=== PATIENT | male | born 1985 | race Caucasian/White ===

== ENCOUNTER 2016-12-09 12:10 | Day surgery (SDC) | payer OTHER ==
[~2016-12-09] VITALS: Ht 167.6 cm; Wt 77.0 kg
[~2016-12-09 12:10] MED LIST: 0.9% Sodium Chloride 1,000 ML IV PRN; OMEP20CA11 PO; Sodium Chloride LOK Flush 10 mL Syringe IV PRN; fentaNYL-PF 50 mCg/mL 2 mL Inj IVPUSH PRN
[2016-12-09 12:40] VITALS: BP 120/75; PULSE 69; RESP 16; O2SAT 95
--- NOTE | 2016-12-09 13:44 | PCM.ENDEGD ---
EGD Date of Service: Dec 09, 2016 Physician Christiano Wong MD Pre Procedure Diagnosis: Abdominal pain and reflux Post Procedure Dx & Findings: Normal upper endoscopy Procedure Esophagogastroduodenoscopy PROCEDURE IN DETAIL: After proper sedation, Olympus video endoscope was inserted into patient's mouth and esophagus was successfully intubated. Scope introduced esophagus. Esophagus showed normal shiny whitish mucosa consistent with squamous cell component. Z line was intact at 43 cm from the incisors. Scope further advanced into the stomach. Stomach showed normal shiny mucosa with normal appearing rugae folds without any ulcer mass erosion. Cardia fundus body antrum pylorus were all visualized. Retroflexion was done. Stomach was easily inflated and deflatable using air. Scope further events to the distal duodenum. Duodenum revealed normal villous structures with normal appearing folds without any mass ulcer erosion. 5 Biopsies are obtained in the duodenum to rule out celiac disease Impression Normal upper GI Recommendation Await biopsy Presedation Assessment Risks and Benefits Informed consent was obtained from the patient after all risks and benefits including but not limited to drug reaction, infection, pain, bleeding, perforation, as well as alternatives were discussed. Patient monitoring Continuous pulse oximetry, cardiac monitoring, blood pressure monitoring, IV access, and oxygen at 2L per nasal cannula. Periprocedural Fentanyl: Fentanyl 175mcg Incrementally Midazolam: Midazolam 8mg Incrementally Diphenhydramine: Diphenhydramine 50 mg IV Complications There were no periprocedural complications identified. Post Procedure Plan Post Procedure Recommendations 1. Restrict activities today. 2. Resume normal activities in the morning. 3. Resume medications. 4. GERD behavioral modification: - Avoid fatty, acidic, spicy, large meals - Do not lie down after meals - Do not eat or drink anything for at least 2 1/2 hours before going to bed at night - Discontinue tobacco and alcohol - Decrease or avoid caffeine - Avoid chocolate and mints - Decrease weight - Avoid aspirin and non steroidal anti-inflammatory agents (NSAID) such as Aleve, Advil, Mobic, Naproxen, Ibuprofen, etc 5. Add proton pump inhibitor. Take 30 minutes before 1st meal of the day. 6. Patient informed of normal post procedure side effects as bloating, drowsiness, blood streaking in the stool 7. If gastric biopsy reveal H.pylori, continue with appropriate treatment 8. If small bowel biopsy reveals celiac, continue with appropriate treatment 9. Please don't hesitate to call me with any questions Christiano Wong MD Dec 09, 2016 13:44
--- NOTE | 2016-12-09 14:07 | PCM.ENDCOL ---
Colonoscopy Date of Service: Dec 09, 2016 Physician Christiano Wong MD Pre Procedure Diagnosis: Abdominal pain and blood in the stools Post Procedure Dx & Findings: Hemorrhoids polyps right sided erosions Procedure Colonoscopy Prep adequate Withdrawal time 14 minutes After unremarkable rectal examination the Olympus video colonoscope was inserted patient's anal canal and was advanced to cecum. Landmarks were identified including the ileocecal valve and appendiceal orifice. Scope was withdrawn systematically. Visualized colonic mucosa showed healthy shiny mucosa with normal healthy-appearing vasculature. In the cecum and in the ascending colon, there were several subtle millimeter erosions. Sampling biopsies obtained. In the ascending colon, there was a 2 mm polyp which was removed completely using cold snare. This was colon there was a 1 mm polyp which was removed completely using cold snare. In the descending colon, there was a 5 mm polyp which was removed completely using cold snare. In the rectum retroflexion was done which showed hemorrhoids. Anal canal was inspected carefully on the way out and hemorrhoids noted. Impression Polyp 3 status post complete removal Right-sided colonic erosions status post biopsy Hemorrhoids Recommendation Repeat colonoscopy 3 years Follow up in GI clinic with the physician's chiropractic assistant. Presedation Assessment Risks and Benefits Informed consent was obtained from the patient after all risks and benefits including but not limited to drug reaction, infection, pain, bleeding, perforation, as well as alternatives were discussed. Patient monitoring Continuous pulse oximetry, cardiac monitoring, blood pressure monitoring, IV access, and oxygen at 2L per nasal cannula. Periprocedural Fentanyl: Fentanyl 25mcg Midazolam: Midazolam 1mg Incrementally Complications There were no periprocedural complications identified. Post Procedure Plan Post Procedure Recommendations 1. Restrict activities today. 2. Resume normal activities in the morning. 3. Resume medications. 4. Patient informed of normal post procedure side effects as bloating, drowsiness, blood streaking in the stool. 5. average risk CRCS. If colon polyps come back as: -Hyperplastic- can repeat colonoscopy in 10 years -Tubular adenoma- repeat colonoscopy in 5 years -Tubulovillous/villous adenoma- repeat colonoscopy in 3 years -If any dysplasia- return to clinic as soon as possible 6. Please don't hesitate to call me with any questions. Christiano Wong MD Dec 09, 2016 14:07
[2016-12-09 14:08] VITALS: BP 109/64; PULSE 69; RESP 17; O2SAT 96
[2016-12-09 14:17] VITALS: BP 103/60; PULSE 67; RESP 17; O2SAT 98
[2016-12-09 14:27] VITALS: BP 115/73; PULSE 85; RESP 17; O2SAT 99
--- NOTE | 2016-12-11 14:29 | PATH ---
SURGICAL PATHOLOGY Attending Physician:Christiano Wong M.D. CASE STATUS: Signed Out PATIENT NAME: SURYA REGALADO PID: [id number] : 1985 DATE COLLECTED:12/09/2016 00:00 SPECIMEN: 1: Duodenum, Biopsy 2: Colon, Biopsy 3: Colon, Biopsy 4: Colon, Biopsy 5: Colon, Biopsy CLINICAL HISTORY: 1). DUODENAL BIOPSY 2). CECAL /ASCENDING BIOPSY 3). ASCENDING COLON POLYP X1 4). TRANSVERSE COLON POLYP X1 5). DESCENDING COLON POLYP FINAL DIAGNOSIS: 1. Duodenal Biopsy: Fragments of normal appearing duodenum mucosa. Normal delicate mucosal villi present. Negative for significant inflammation, dysplasia and malignancy. 2. Cecal/Ascending Colon Biopsy: Changes consistent with chronic active colitis with focal cryptitis. Negative for dysplasia and malignancy. Negative for granulomas. 3. Ascending Colon Polyp: Tubular adenoma. 4. Transverse Colon Polyp: Changes consistent with small tubular adenoma. 5. Descending Colon Polyp: Tubular adenoma. ICD10 D12.2 GROSS DESCRIPTION: The specimen is received in five formalin filled containers labeled with the patient's name. 1). Thus specimen is sublabeled "duodenal" and consists of 2 portions of tissue which aggregate to 0.3 x 0.3 x 0.2 CM. The specimen is entirely submitted in cassette 1A. 2). The specimen is sublabeled "cecal/ascending" and consists of 2 portions of tissue which aggregate to 0.4 x 0.3 x 0.3 CM. The specimen is entirely submitted in cassette 2A. 3). The specimen is sublabeled "ascending colon polyp" and consists of a 0.3 x 0.3 x 0.3 CM portion of tissue which is entirely submitted in cassette 3A. 4). The specimen is sublabeled "transverse colon polyp" and consists of a 0.3 x 0.2 x 0.2 CM portion of tissue which is entirely submitted in cassette 4A. 5). The specimen is sublabeled "descending colon polyp" and consists of a 0.4 x 0.4 x 0.3 CM portion of tissue which is entirely submitted in cassette 5A. 12/10/2016 [facility] ICD-9 CODES: CPT CODES: 1: 82625 2: 41938 3: 37135 4: 64902 5: 41197 Electronically Signed Out Rosales Szymanski MD [facility] [address], [place] [address] Technical component performed at [facility], [address], [place], [address]
== END 2016-12-09 23:59 | disposition home or self-care (01) ==
LOC: END 12:10
PROVIDERS: ATTEND Internal Medicine
DX: D12.2 Benign neoplasm of ascending colon (principal); D12.3 Benign neoplasm of transverse colon; D12.4 Benign neoplasm of descending colon; K52.9 Noninfective gastroenteritis and colitis, unspecified; K62.89 Other specified diseases of anus and rectum; K64.8 Other hemorrhoids; K21.9 Gastro-esophageal reflux disease without esophagitis; R10.13 Epigastric pain
CPT/HCPCS: 43239; 45380; 45385; 99153; G0500; J1200; J2250; J3010; J7030